=== PATIENT | female | born 1945 | race Hispanic/Latino ===

== ENCOUNTER 2016-09-01 11:29 | Outpatient (CLI) | payer MEDICARE ==
--- NOTE | 2016-09-01 15:35 | Cat Scan Report ---
CT CHEST, ABDOMEN AND PELVIS WITH CONTRAST: 09/01/16 11:29:00 CLINICAL: Lung cancer followup. COMPARISON: 04/13/[address] TECHNIQUE: Volumetric acquisition and 1.25 millimeter scan reconstructions after the uneventful intravenous injection of 100 cc of Omnipaque 300. Consent was obtained prior to the administration of the contrast. Oral contrast was also given. FINDINGS: Chest: A spiculated mass of the posterior right upper lobe measures 1.1 x 0.8 cm compared to 2.1 x 1.9 cm. A new anterior right upper lobe nodule is associated with the scar and measures 2.1 x 1.8 x 1.0 cm. No other lung nodules. Moderate centrilobular emphysema. Normal aorta, heart and pulmonary arteries. Normal esophagus and trachea. No mediastinal or hilar lymphadenopathy.No axillary or supraclavicular lymphadenopathy. A left [id number] tip is in the right atrium. Abdomen: Normal liver, gallbladder and bile ducts. Normal stomach, duodenum, pancreas and spleen. Normal adrenal glands and kidneys. Moderate calcification of the abdominal aorta and iliac arteries. Normal inferior vena cava. No mass or lymphadenopathy. No ascites.The small bowel is normal. The colon is normal except for mild diverticulosis of the left colon. The appendix is normal. Pelvis: Normal urinary bladder, uterus and rectum.A 2 cm follicle of the left ovary. A right ovary is not identified. Normal sigmoid colon.. Bone windows demonstrate no suspicious bone lesion. IMPRESSION:1. Positive response to treatment with decreased size in the right upper lobe tumor. 2. A new anterior right upper lobe anterior nodule associated with a scar. Consider PET for further evaluation. 3. No evidence of florecita, hepatic or skeletal metastasis. 4. Diverticulosis but no diverticulitis. 5. A 2 cm physiologic cysts of the left ovary.
== END 2016-09-01 11:30 | disposition home or self-care (01) ==
LOC: SPVIMAG 11:29
PROVIDERS: ATTEND Internal Medicine Hematology & Oncology
DX: C34.90 Malignant neoplasm of unspecified part of unspecified bronchus or lung (principal); N83.202 Unspecified ovarian cyst, left side; K57.30 Diverticulosis of large intestine without perforation or abscess without bleeding; J43.2 Centrilobular emphysema; R91.1 Solitary pulmonary nodule
CPT/HCPCS: 71260; 74177; Q9967

== ENCOUNTER 2016-12-01 08:53 | Outpatient (CLI) | payer MEDICARE ==
[2016-12-01 10:01] LABS: Blood Urea Nitrogen 11 mg/dL (7-17)
--- NOTE | 2016-12-01 11:34 | Cat Scan Report ---
CT CHEST, ABDOMEN AND PELVIS WITH CONTRAST INDICATION: Malignant neoplasm of bronchus or lung. COMPARISON: 09/01/2016. FINDINGS: Chest, abdomen and pelvis CT performed following oral contrast and intravenous administration of 100 cc of Omnipaque 300. CHEST: Small spiculated right upper lung lesion is relatively stable, now approximately 1.1 x 0.7 cm, axial series 2, image 66, previously 1.1 x 0.8 cm. Right upper lobe scarring anteriorly again noted with greatest mass-like thickening now approximately 2.3 x 1.6 cm, axial image 87, series 2 and 1.1 cm craniocaudal, previously approximately 2.1 x 1.8 x 1 cm. A tiny 5 mm peripheral right lower lobe/subpleural nodular density is stable, axial image 175, series 2. No other new focal suspicious lung nodules have appeared. Bilateral emphysematous changes again noted, greatest involving the upper lobes. Heart size, aorta and pulmonary arteries again within normal limits. Mild atherosclerotic calcifications. Small pericardial effusion anteriorly is new with maximum thickness of 1.3 cm, axial image 147, series 2. No size significant adenopathy. Patent airway. Normal thyroid. Left upper anterior chest wall Port-A-Cath tip now just extending into the SVC. Nonspecific distal esophageal wall thickening, not excluded for gastroesophageal reflux and/or hiatal hernia, amongst others. ABDOMEN: Few stable, sub-centimeter, indeterminate hepatic hypodensities, the largest 5 mm in the right hepatic lobe posterosuperiorly, axial image 291, series 2. Otherwise unremarkable liver, spleen, gallbladder, pancreas, adrenals, nonaneurysmal abdominal aorta with atherosclerotic aortoiliac calcifications, IVC and non-hydronephrotic kidneys. Stable indeterminate 4 mm right cortical hypodensity, axial image 358, series 2. No ascites or size significant adenopathy. Normal opacified GI tract. Normal appendix. Mild descending colon diverticulosis. PELVIS: Urinary bladder, uterus and rectum appear within normal limits. Approximately 2 cm left ovarian follicular hypodense appearance may again be noted, axial image 43, series 2. Mild proximal to mid sigmoid diverticulosis. No free fluid or significant adenopathy. Demineralized bones with mild right hip degenerative changes. Approximately 5 mm anterolisthesis of L4 over L5 is unchanged as also lower lumbar facet arthropathy. Multilevel spinal degenerative spurring also again noted as also small sclerotic foci in T3 and T9 vertebral bodies, likely bone islands. CONCLUSION: 1. New pericardial effusion since 06/25/2017, as described. 2. No significant interval change in right upper lobe lesions allowing for the difference in technique and interobserver variation with various other stable incidental findings, as above. Thank you for the opportunity to participate in this patient's care.
--- NOTE | 2016-12-01 14:51 | Nuclear Medicine Report ---
BONE SCAN: History: Restaging of lung cancer. After injection of isotope, gamma camera imaging of the bony system was done. There is a normal uptake of isotope throughout the bony structures. Normal uptake in the urinary system is seen. There is a solitary, small focus of increased radiotracer uptake in the right occipital bone. IMPRESSION: Solitary focus of increased radiotracer uptake in the right occipital bone. This is concerning for a solitary metastasis. Consider further evaluation with MRI with contrast.
== END 2016-12-01 08:54 | disposition home or self-care (01) ==
LOC: NM 08:53
PROVIDERS: ATTEND Internal Medicine Hematology & Oncology
DX: C34.90 Malignant neoplasm of unspecified part of unspecified bronchus or lung (principal)
CPT/HCPCS: 36415; 71260; 74177; 78306; 82565; 84520; A9503; Q9967